=== PATIENT | male | born 1955 | race Caucasian/White ===

== ENCOUNTER → 2017-01-30 | Outpatient (REF) | LOC: LAB 07:07 | DX: Z00.00 Encounter for general adult medical examination without abnormal findings (principal); Z12.5 Encounter for screening for malignant neoplasm of prostate; E78.5 Hyperlipidemia, unspecified; K22.4 Dyskinesia of esophagus; R73.01 Impaired fasting glucose ==

== ENCOUNTER → 2021-01-14 | Outpatient (REF) | LOC: LAB 14:53 | DX: Z00.00 Encounter for general adult medical examination without abnormal findings (principal); I10 Essential (primary) hypertension; E78.5 Hyperlipidemia, unspecified; M25.50 Pain in unspecified joint; R25.2 Cramp and spasm ==

== ENCOUNTER → 2022-02-09 | Outpatient (CLI) | payer MEDICARE ==
[2022-02-09 10:59] LABS: BASO # 0.04 K/mm3 (0.02-0.10); EOS # 0.41 K/mm3 (0.04-0.40); EOS % 5.3 % (0.0-4.0); HEMATOCRIT 48.3 % (42.0-52.0); HEMOGLOBIN 15.8 g/dL (13.5-18.0); MEAN CELL VOLUME 91 fl (78-100); MEAN CORPUSCULAR HEMOGLOBIN 30 pg (27-31); MEAN CORPUSCULAR HGB CONC 33 g/dL (33-37); MEAN PLATELET VOLUME 10.1 fl (7.4-10.4); MONO # 0.76 K/mm3 (0.20-0.80); NEU # 5.04 K/mm3 (1.40-6.50); PLATELET COUNT 247 K/mm3 (130-400); WHITE BLOOD COUNT 7.8 K/mm3 (4.8-10.8)
[2022-02-09 11:04] LABS: POTASSIUM 3.9 mmol/L (3.5-5.1)
[2022-02-09 11:05] LABS: ALBUMIN 4.1 g/dL (3.4-4.8)
[2022-02-09 11:06] LABS: CALCIUM 9.5 mg/dL (8.3-10.5)
[2022-02-09 11:07] LABS: TOTAL PROTEIN 7.7 g/dL (6.2-8.1)
[2022-02-09 11:09] LABS: TOTAL BILIRUBIN 0.5 mg/dL (0.2-1.2)
[2022-02-09 11:15] LABS: URINE APPEARANCE CLEAR; URINE COLOR YELLOW
[2022-02-09 11:16] LABS: URINE BILIRUBIN NEGATIVE (NEGATIVE); URINE BLOOD NEGATIVE (NEGATIVE); URINE GLUCOSE NEGATIVE (NEGATIVE); URINE KETONE NEGATIVE (NEGATIVE); URINE LEUKOCYTE ESTERASE NEGATIVE (NEGATIVE); URINE NITRATE NEGATIVE (NEGATIVE); URINE PROTEIN(semi-quant) NEGATIVE (NEGATIVE); URINE UROBILINOGEN NORMAL (NORMAL); URINE WBC 0-1 /hpf (0-3)
== END ==
LOC: LAB 10:40
PROVIDERS: Physician Assistant
DX: C61 Malignant neoplasm of prostate (principal); Z00.00 Encounter for general adult medical examination without abnormal findings; I10 Essential (primary) hypertension; Z13.29 Encounter for screening for other suspected endocrine disorder; Z13.1 Encounter for screening for diabetes mellitus; E78.5 Hyperlipidemia, unspecified; R35.0 Frequency of micturition

== ENCOUNTER → 2023-02-17 | Outpatient (CLI) | payer MEDICARE ==
[2023-02-17 14:15] LABS: BASO # 0.05 K/mm3 (0.02-0.10); EOS # 0.18 K/mm3 (0.04-0.40); HEMOGLOBIN 15.6 g/dL (13.5-18.0); LYMPH# 1.69 K/mm3 (1.50-4.00); MEAN CELL VOLUME 92 fl (78-100); MEAN CORPUSCULAR HEMOGLOBIN 30 pg (27-31); MEAN CORPUSCULAR HGB CONC 33 g/dL (33-37); MEAN PLATELET VOLUME 10.1 fl (7.4-10.4); MONO # 0.85 K/mm3 (0.20-0.80); NEU # 6.29 K/mm3 (1.40-6.50); PLATELET COUNT 280 K/mm3 (130-400); RED BLOOD COUNT 5.21 M/mm3 (4.20-5.60); RED CELL DISTRIBUTION WIDTH 13.5 % (11.5-14.5); WHITE BLOOD COUNT 9.1 K/mm3 (4.8-10.8)
[2023-02-17 14:21] LABS: ALBUMIN 4.1 g/dL (3.4-4.8); POTASSIUM 3.9 mmol/L (3.5-5.1)
[2023-02-17 14:22] LABS: CALCIUM 9.7 mg/dL (8.3-10.5)
[2023-02-17 14:23] LABS: TOTAL PROTEIN 7.3 g/dL (6.2-8.1)
[2023-02-17 14:25] LABS: TOTAL BILIRUBIN 0.6 mg/dL (0.2-1.2)
[2023-02-17 14:27] LABS: URINE APPEARANCE CLEAR; URINE BILIRUBIN NEGATIVE (NEGATIVE); URINE BLOOD NEGATIVE (NEGATIVE); URINE COLOR YELLOW; URINE GLUCOSE NEGATIVE (NEGATIVE); URINE KETONE NEGATIVE (NEGATIVE); URINE LEUKOCYTE ESTERASE NEGATIVE (NEGATIVE); URINE NITRATE NEGATIVE (NEGATIVE); URINE PROTEIN(semi-quant) NEGATIVE (NEGATIVE); URINE UROBILINOGEN NORMAL (NORMAL)
[2023-02-17 14:28] LABS: URINE MUCUS PRESENT (NOT PRESENT); URINE WBC 0-1 /hpf (0-3)
== END ==
LOC: LAB 13:54
PROVIDERS: Physician Assistant
DX: Z00.00 Encounter for general adult medical examination without abnormal findings (principal); Z13.1 Encounter for screening for diabetes mellitus; Z13.29 Encounter for screening for other suspected endocrine disorder; M25.562 Pain in left knee; S81.802A Unspecified open wound, left lower leg, initial encounter; I10 Essential (primary) hypertension; N40.0 Benign prostatic hyperplasia without lower urinary tract symptoms; E78.5 Hyperlipidemia, unspecified; N20.0 Calculus of kidney; C61 Malignant neoplasm of prostate; B35.1 Tinea unguium; C44.91 Basal cell carcinoma of skin, unspecified

== ENCOUNTER → 2024-02-27 | Outpatient (CLI) | payer MEDICARE ==
[2024-02-27 14:09] LABS: BASO # 0.02 K/mm3 (0.02-0.10); EOS # 0.21 K/mm3 (0.04-0.40); EOS % 2.9 % (0.0-4.0); HEMOGLOBIN 15.5 g/dL (13.5-18.0); LYMPH# 1.54 K/mm3 (1.50-4.00); MEAN CELL VOLUME 91 fl (78-100); MEAN CORPUSCULAR HEMOGLOBIN 29 pg (27-31); MEAN CORPUSCULAR HGB CONC 32 g/dL (33-37); MONO # 0.76 K/mm3 (0.20-0.80); NEU # 4.58 K/mm3 (1.40-6.50); PLATELET COUNT 283 K/mm3 (130-400); RED BLOOD COUNT 5.29 M/mm3 (4.20-5.60); RED CELL DISTRIBUTION WIDTH 13.2 % (11.5-14.5); WHITE BLOOD COUNT 7.1 K/mm3 (4.8-10.8)
[2024-02-27 14:25] LABS: ALBUMIN 4.1 g/dL (3.4-4.8)
[2024-02-27 14:26] LABS: CALCIUM 9.5 mg/dL (8.3-10.5)
[2024-02-27 14:28] LABS: TOTAL PROTEIN 7.3 g/dL (6.2-8.1)
[2024-02-27 14:30] LABS: TOTAL BILIRUBIN 0.7 mg/dL (0.2-1.2)
== END ==
LOC: LAB 13:55
PROVIDERS: Physician Assistant
DX: Z13.1 Encounter for screening for diabetes mellitus (principal); Z13.29 Encounter for screening for other suspected endocrine disorder; C61 Malignant neoplasm of prostate; E78.5 Hyperlipidemia, unspecified